=== PATIENT | female | born 1950 | race Two or more races ===

== ENCOUNTER 2021-05-22 07:35 | Day surgery (SDC) | payer OTHER ==
[~2021-05-22 07:35] MED LIST: CRESTOR10 MG PO; GABAPENTIN600 MG PO
[2021-05-22] MEDS ORDERED: OXYC1TAB9 PO (14:56)
[2021-05-22] MEDS ORDERED: DUI500 PO (14:56)
== END 2021-05-22 16:30 | disposition home or self-care (01) ==
LOC: CIR.AMB 07:35
PROVIDERS: ATTEND Orthopaedic Surgery Sports Medicine
DX: M23.322 Other meniscus derangements, posterior horn of medial meniscus, left knee (principal); M65.862 Other synovitis and tenosynovitis, left lower leg; Z20.822 Contact with and (suspected) exposure to COVID-19